=== PATIENT | female | born 1980 | race Two or more races ===

== ENCOUNTER 2022-06-03 11:47 | Emergency (ER) | payer OTHER ==
[~2022-06-03] VITALS: Ht 162.6 cm; Wt 75.3 kg
[2022-06-03] MEDS ORDERED: STRATTERA18 MG PO (12:13)
[2022-06-03] MEDS ORDERED: PROZAC10 MG PO (12:14)
[2022-06-03] MEDS ORDERED: TRAZODONE HCL150 MG PO (12:14)
[2022-06-03] MEDS ORDERED: KETO10TA2 PO (15:40)
[2022-06-03] MEDS ORDERED: NORFLEX100MG PO (15:40)
== END 2022-06-03 15:45 | disposition home or self-care (01) ==
LOC: ER 11:47
DX: R55 Syncope and collapse (principal); R42 Dizziness and giddiness; R53.1 Weakness